=== PATIENT | male | born 1980 | race Caucasian/White ===

== ENCOUNTER 2023-07-01 09:45 | Emergency (ER) | payer BC, SELFPAY ==
[2023-07-01 09:46] VITALS: BP 173/114; PULSE 91; RESP 20; TEMP 36.2; O2SAT 98; BMI 47.0
--- NOTE | 2023-07-01 09:53 | VDLE_ITS ---
Reason For Study: RLE Pain RIGHT LEFT GSV is normal. FV is compressible, spontaneous, phasic, CFV is compressible, spontaneous, phasic, competent and demonstrates normal competent and demonstrates normal augmentation. augmentation. FV is compressible, spontaneous, phasic, competent and demonstrates normal augmentation. POP V is compressible, spontaneous, phasic, competent and demonstrates normal augmentation. T/P Trunk is compressible. PTV is compressible. RT PerV is compressible. Procedure This is a venous duplex using B-mode, color flow and spectral Doppler. Exam performed portable in ED. The exam was diagnostic. The study was technically difficult. A preliminary report was called and/or faxed to Dr. Jones. VL/Venous Duplex US, Unilateral Interpretation Summary Deep veins of the right lower extremity are patent and compressible segmentally . There is no evidence of right lower extremity deep vein thrombosis. The right [place] vein appears patent and compressible segmentally. Ordering Physician: Jose Jones Referring Physician: N/A Performed By: Alex Arenas RVT
--- NOTE | 2023-07-01 10:20 | EDS_ITS ---
HPI History of Present Illness HPI Narrative: Patient presents with pain and swelling to his right lower leg that has been getting worse over the past 4 to 5 days. Patient states it is gradually getting worse. Patient states the pain feels like it as burning. Patient states it is worse with weightbearing. Patient states he did use a compression sleeve over his knee a few days ago which did help. Patient denies any paresthesias or weakness. Patient denies any trauma or injury. Patient states his mother had a history of pulmonary embolism. Chief Complaint: Lower Extremity Injury Informant: patient Onset/Context/Timing Onset: Days (4-5) Context: Gradual Onset Timing: Continuous Quality of Pain: Burning Location: Right calf and popliteal fossa Worsened by: Weightbearing Relieved by: Compression sleeve Associated Symptoms Associated Symptoms: Negative for Parasthesia, Weakness or Loss of Funtion PFSH PFS Medical History (Updated 07/01/23 @ 12:[address] Jose Jones DO) Hypertension Hypothyroidism Osteoarthritis, hip, bilateral Home Medications hydrocodone-acetaminophen 5-325mg 5mg-325mg 1 tab PO Q6H PRN PRN Pain 3 days #10 TABLETS 07/01/23 [Rx Last Taken Unknown] Allergy/AdvReac Type Severity Reaction Status Date / Time erythromycin base Allergy Intermediate Hives Verified 07/01/23 09:48 [From Erythrocin] Surgical History Hx of appendectomy Social History (Updated 07/01/23 @ 10:[address] Jose Jones DO) Smoking Status: Former smoker Electronic Cigarette Use: with nicotine ROS ROS ED Constitutional Constitutional ED: Denies chills or fever(s) Eyes Eyes: Denies blurry vision or change in vision ENT ENT ED: Denies rhinorrhea or sore throat Cardiovascular Cardiovascular: Denies chest pain or palpitations Respiratory/Chest Respiratory/Chest: Denies cough or dyspnea Gastrointestinal Gastrointestinal: Denies nausea or vomiting Genitourinary Genitourinary ED: Denies dysuria or hematuria Musculoskeletal Musculoskeletal: Denies back pain or neck pain Integumentary Reports abscess; Denies rash Neurologic Neurologic: Denies headache(s) or weakness Allergic/Immunologic Allergic/Immunologic ED: Denies mouth swelling or urticaria EXAM Physical Exam Const Vital Signs: 07/01/23 09:46 Temperature 97.2 F L Temperature Source Temporal Pulse Rate 91 Respiratory Rate 20 H Blood Pressure 173/114 H Blood Pressure Mean 133 Pulse Ox 98 Oxygen Delivery Method Room Air Positive well nourished, well developed and obese General Appearance ED: well developed and NAD Nutritional Appearance: obese HEENT Reports moist mucous membranes Neck full ROM and supple Extremity Extremity Narrative: There is tenderness over the right popliteal fossa and right calf. There is edema of the right lower leg. There is no erythema or warmth noted. There is good range of motion. Pedal pulses are equal bilateral. Sensation was intact to light touch in all digits. Capillary refill was less than 2 seconds in all digits. Neuro oriented x3, CN's II-XII intact bilaterally, moves all extremities and no sensory deficits noted Sensorium / Orientation: alert Motor Exam: strength 5/5 throughout Psych mental status grossly normal MDM MDM MDM Narrative Medical decision making narrative: Differential diagnosis includes DVT and muscle strain. Venous duplex of the right lower extremity will be obtained to assess for DVT. Radiography Diagnostic Testing: Venous duplex of the right lower extremity was obtained and was negative for DVT. Treatment and Re-Evaluation Narrative: Patient was advised of his findings. sap technical architect reported that the patient was having most of his pain over the medial aspect of his right knee and over the hamstring tendon. Patient was advised this could be tendinitis versus medial collateral strain versus medial meniscus tear. Patient was instructed to ice and elevate the right knee and leg. Patient was instructed to follow-up with his primary care physician in 5 to 7 days for further evaluation. Patient was instructed to continue his nabumetone. Patient was given a prescription for a short dose of [place] for severe pain. Patient understood and was agreeable with the plan. All questions were answered. Discharge Plan Triage Chief Complaint: Lower Extremity Injury ED Provider: Jose Jones Dx/Rx/DC Orders Clinical Impression: Right medial knee pain, Pain in right leg Instructions: ED Meniscal Injury Knee Poss, ED Knee Pain of Uncertain Cause, ED Muscle Strain, Extremity Prescriptions: New hydrocodone-acetaminophen [hydrocodone-acetaminophen] 5-325 mg tablet 1 tab PO Q6H PRN PRN (Reason: Pain) 3 Days Qty: 10 0RF Primary Care Provider: Easton Baird Referrals: Easton Baird MD [Primary Care Provider] - 5-7 Days NOT,DEFINED [Non-Staff] - Activity Restrictions/Additional Instructions: Use ice and heat to your right knee and lower leg. Continue your nabumetone as previously prescribed. Disposition Disposition: Home, Self Care
[2023-07-01 12:17] VITALS: BP 168/100; PULSE 89; RESP 18; TEMP 36.2; O2SAT 98
== END 2023-07-01 12:20 | disposition home or self-care (01) ==
PROVIDERS: Emergency Provider Emergency Medicine; PCP Family Medicine; Visit Provider Emergency Medicine
DX: M25.561 Pain in right knee (principal); M79.604 Pain in right leg; Z87.891 Personal history of nicotine dependence; E66.9 Obesity, unspecified; I10 Essential (primary) hypertension; E03.9 Hypothyroidism, unspecified; M79.89 Other specified soft tissue disorders
CPT/HCPCS: 93971; 99282